=== PATIENT | female | born 1990 | race Caucasian/White ===

== ENCOUNTER → 2023-04-24 | Outpatient (CLI) | payer OTHER ==
[2023-04-27 16:56] LABS: APTIMA MEDIA TYPE Urine; C. TRACHOMATIS BY TMA Negative (Negative); N. GONORRHOEAE BY TMA Negative (Negative); SPECIMEN SOURCE Urine
== END ==
LOC: LAB 17:23 → LAB SHORT 17:23
PROVIDERS: Family Medicine
DX: Z34.81 Encounter for supervision of other normal pregnancy, first trimester (principal); Z3A.01 Less than 8 weeks gestation of pregnancy
CPT/HCPCS: 87086; 87491; 87591

== ENCOUNTER 2023-06-26 05:17 | Day surgery (SDC) | payer OTHER ==
[2023-06-26] MEDS ORDERED: NS 1,000 ML IV SCH (06:55)
[2023-06-26 10:30] VITALS: BP 115/70
[2023-06-26] MEDS ORDERED: ONDA4ODT MM (11:32)
[2023-06-26] MEDS ORDERED: SERT25 PO (11:32)
[2023-06-26] MEDS ORDERED: BUPRENORPHINE HC2 MG SL (11:33)
== END 2023-06-26 10:35 | disposition home or self-care (01) ==
LOC: ATC 05:17
DX: O21.0 Mild hyperemesis gravidarum (principal); Z3A.00 Weeks of gestation of pregnancy not specified; O99.519 Diseases of the respiratory system complicating pregnancy, unspecified trimester; J45.20 Mild intermittent asthma, uncomplicated; Z88.1 Allergy status to other antibiotic agents; Z88.0 Allergy status to penicillin; Z79.899 Other long term (current) drug therapy
CPT/HCPCS: 99213; C1751